=== PATIENT | male | born 1990 | race African-American/Black ===

== ENCOUNTER 2020-01-11 01:37 | Emergency (ER) | payer OTHER ==
[~2020-01-11] VITALS: Ht 190.5 cm; Wt 99.3 kg
[2020-01-11] MEDS ORDERED: TYLENOL EXTRA500 MG ORAL (01:48)
[2020-01-11 01:50] VITALS: BP 149/86
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
--- NOTE | 2020-01-11 04:05 | NUR ---
ED Nurse Note: pt back from ct and xr
[2020-01-11 04:24] VITALS: BP 139/73
--- NOTE | 2020-01-11 04:26 | NUR ---
ED Nurse Note: pt is calm and sleeping. vss, nad.
--- NOTE | 2020-01-11 04:46 | Diagnostic Imaging Report ---
Indication: Headache Technique: Contiguous 5 mm thick transaxial imaging of the head obtained in a Siemens Sensation [address] scanner. Soft tissue and bone windows generated. Automatic Exposure Control was utilized. Total Dose length Product (DLP): 1125.7mGycm CT Dose Index Volume (CTDIvol): 53.4 mGy Comparison: none Findings: The size and configuration of the cortical sulci, basal cisterns, and ventricles are within normal limits for age. There is no mass effect, midline shift, or edema identified. There is no evidence of acute hemorrhage or abnormal intra-axial or extra-axial fluid collections. The bones and soft tissues are unremarkable. Impression: No mass effect, edema or acute bleed. [facility] has communicated the preliminary results to the Emergency Department. Their findings are largely concordant with this report. The CT scanner at [facility] is accredited by the [employer] and the scans are performed using dose optimization techniques as appropriate to a performed exam including Automatic Exposure control.
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
[2020-01-11] MEDS ORDERED: IBUPROFEN600 MG ORAL (05:06)
[2020-01-11] MEDS ORDERED: ROBAXIN-500MG ORAL (05:06)
[2020-01-11 05:15] VITALS: BP 139/73
--- NOTE | 2020-01-11 05:15 | NUR ---
ER DISCHARGE NOTE: Patient is cleared to be discharged per ERMD, pt is aox4, on room air, with stable vital signs. pt was given dc and prescription instructions, pt was able to verbalize understanding, pt id band removed without complications. pt is able to ambulate with steady gait. pt took all belongings.
--- NOTE | 2020-01-11 11:13 | Diagnostic Imaging Report ---
Indication: left shoulder pain Findings: 3 views of the left shoulder were obtained. Alignment of the left shoulder is normal. No acute fracture is identified. There is suture anchors projected over the anterior glenoid rim. Soft tissues are unremarkable. Impression: No acute injury. Previous glenoid surgery
== END 2020-01-11 05:15 | disposition home or self-care (01) ==
LOC: EMR 01:56
DX: S16.1XXA Strain of muscle, fascia and tendon at neck level, initial encounter (principal); S40.012A Contusion of left shoulder, initial encounter; F12.90 Cannabis use, unspecified, uncomplicated; V43.62XA Car passenger injured in collision with other type car in traffic accident, initial encounter; Y92.411 Interstate highway as the place of occurrence of the external cause
CPT/HCPCS: 70450; 72125; 73030; Z7502; 99284

== ENCOUNTER 2020-01-12 13:58 | Emergency (ER) | payer OTHER ==
[~2020-01-12] VITALS: Ht 188 cm; Wt 99.8 kg
[~2020-01-12 13:58] MED LIST: IBUPROFEN600 MG ORAL; ROBAXIN-500MG ORAL; TYLENOL EXTRA500 MG ORAL
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
[2020-01-12 14:09] VITALS: BP 125/72
[2020-01-12] MEDS ORDERED: Methocarbamol 750mg tab ORAL ONE (14:30)
[2020-01-12] MEDS ORDERED: Ketorolac 30mg Inj IV ONE (14:30)
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
--- NOTE | 2020-01-12 15:00 | NUR ---
ER DISCHARGE NOTE: Patient is cleared to be discharged per ERMD, pt is aox4, on room air, with stable vital signs. pt was given dc instructions, pt was able to verbalize understanding, pt id band and iv site removed without complications. pt is able to ambulate with steady gait. pt took all belongings.
[2020-01-12 15:01] VITALS: BP 122/68
== END 2020-01-12 15:00 | disposition home or self-care (01) ==
LOC: EMR 14:15
DX: S16.1XXD Strain of muscle, fascia and tendon at neck level, subsequent encounter (principal); M25.512 Pain in left shoulder; V49.9XXD Car occupant (driver) (passenger) injured in unspecified traffic accident, subsequent encounter
CPT/HCPCS: 96361; 96374; J1885; J7030; Z7502; 99284